=== PATIENT | female | born 1995 | race Caucasian/White ===

== ENCOUNTER 2020-08-05 10:16 | Emergency (ER) | payer BC, SELFPAY ==
[2020-08-05 10:27] VITALS: BP 126/86; PULSE 90; RESP 19; TEMP 37; O2SAT 99; BMI 26.2
--- NOTE | 2020-08-05 10:38 | HMH.EDUTC ---
[facility] [place] Disposition Clinical Impression: Viral upper respiratory illness, Encounter for laboratory testing for COVID-19 virus Disposition: Home, Self-Care Condition on Discharge: Good Instructions: Preventing the Spread of Coronavirus Discharge Instructions Additional Instructions: *Monitor Temp, Over the counter Motrin or Tylenol as directed/as needed Tylenol every 4 hours and Motrin every 6 hours (as long as your family doctor has told you that you can take it) for fever or pain. and straight to ER if unable to lower temp less than 101.0 after medication given *Warm salt water gargles may help to soothe the throat *Throat Lozenges *Warm fluids like tea with honey may help to soothe the throat *Sleep elevated *Humidifier/Vaporizer *Flonase 2 sprays in each nostril daily but be aware that it may take 2-3 days before you notice improvement *Bromfed may cause drowsiness. Know how it effects you (your child) before driving, caring for small child, or sending your child to school. Not other antihistamines/allergy medications while taking bromfed Your throat swab was sent for culture. Those results are typically sent to your primary care. Be sure to follow up in 2-3 days with your family doctor/primary care physician if no improvement so they can review those result and treat if necessary. If you don?t have a primary care doctor, I recommend you get one but in the mean time, you will have to return to a walk in clinic Follow up IMMEDIATELY for new or worsening symptoms or no Noticeable improvement over the next 48-72 hours. 911 for difficulty breathing or swallowing You was tested for today for COVID19 your test result should be back later this evening, you may call back later this evening to see if your test results are back and the result You was given a handout with instructions for Self Quarantine and Self isolation for while you wait on test results and what to do if they are positive Prescriptions: Brompheniramine/Pseudoephed/Dm [Bromfed Dm Cough Syrup] 5 - 10 ml PO Q46H #200 ml Transmission Status: Received by [id number] Fluticasone Propionate [Flonase 50mcg nasal spray 16gm] 1 spr NS DAILY #1 bottle Transmission Status: Received by [id number] Referrals: Sushant Castro MD [Primary Care Provider] - As needed Forms: Work/School Release Time of Disposition: 10:54 Medical Decision Making - Dante Inquiry Pt receiving controlled substance: No Dante was queried for this patient: No Vital Signs: 08/05/20 10:27 Temperature 98.6 F Temperature Source Oral Pulse Rate [Radial] 90 Respiratory Rate 19 Blood Pressure [Right Arm] 126/86 Blood Pressure Mean [Right Arm] 99 02 Sat by Pulse Oximetry 99 Orders (Tests/Meds): ORDERS Category Date Time Status Covid-19 Nasal PCR ([facility]) Routine Lab 08/05/20 10:30 Received Medical Decision Narrative: Denies [facility] [place] HPI - General Stated complaint: covid exposure Time Seen by Provider: 08/05/20 10:38 Mode of Arrival: Ambulatory Source of Information: Patient Limitations: No Limitations Description of Symptoms (Recalled from Triage Doc. by RN): covid exposure. HEENT Symptoms (Recalled from RN notes): No Resp Symptoms (Recalled from RN notes): No Skin Symptoms (Recalled from RN notes): No MS Symptoms (Recalled from RN notes): No Functional Status (Recalled from RN notes): wnl - History of Present Illness Provider Complaint: Patient states that she was recently exposed to someone that was positive for COVID and was tested and her initial test was negative but has since started having symptoms such as runny nose, body aches and chills States that today she come back in to get retested again since she is now having symptoms - Related Data Previous Rx's Medication Instructions Recorded Brompheniramine/Pseudoephed/Dm 5 - 10 ml PO Q46H #200 ml 08/05/20 [Bromfed Dm Cough Syrup] Fluticasone Propionate [Flonase 1 spr NS DAILY #1 bottle
[2020-08-05 11:06] VITALS: BP 126/84; PULSE 90; RESP 19; TEMP 37; O2SAT 99
[2020-08-06 17:51] LABS: Covid-19 Nasal PCR Sendout Lex Not Detected
== END 2020-08-05 11:06 | disposition home or self-care (01) ==
PROVIDERS: Emergency Provider Nurse Practitioner; PCP Internal Medicine Adolescent Medicine
DX: Z20.828 Contact with and (suspected) exposure to other viral communicable diseases (principal); J06.9 Acute upper respiratory infection, unspecified
CPT/HCPCS: 99201; U0003; U0004

== ENCOUNTER → 2021-06-30 11:45 | Outpatient (CLI) | payer BC, SELFPAY | PROVIDERS: PCP Internal Medicine Adolescent Medicine; Visit Provider Nurse Practitioner | DX: Z20.822 Contact with and (suspected) exposure to COVID-19 (principal) | CPT/HCPCS: C9803; U0003; U0005 ==

== ENCOUNTER → 2022-10-23 07:14 | Outpatient (CLI) | payer BC, SELFPAY ==
[2022-10-23 13:52] LABS: HCG,Quantitative 98433 mIU/ml (0-5.42)
== END ==
PROVIDERS: Visit Provider Student in an Organized Health Care Education/Training Program
DX: N92.6 Irregular menstruation, unspecified (principal); Z32.00 Encounter for pregnancy test, result unknown
CPT/HCPCS: 36415; 84702

== ENCOUNTER 2023-04-26 20:09 | Outpatient (CLI) | payer BC, SELFPAY ==
[2023-04-26 20:09] VITALS: BP 99/59; PULSE 105; RESP 24; TEMP 36.8; O2SAT 97; BMI 26.6
[2023-04-26 20:40] VITALS: BMI 27.2
--- NOTE | 2023-04-26 20:47 | US_ITS ---
PROCEDURE INFORMATION: Exam: US Retroperitoneal Complete, Kidneys Aorta IVC. Exam date and time: 04/26/2023 9:24 PM Age: 27 years old Clinical indication: Abdominal pain; Left lower quadrant (llq); ; Patient HX: 35w preg-- RT flank now going to lt side; Additional info: Flank pain TECHNIQUE: Imaging protocol: Real-time ultrasound of the retroperitoneum with image documentation. Complete exam. COMPARISON: US ABDOMEN LIMITED 04/26/2023 9:14 PM FINDINGS: Right kidney: No stones. Moderate pelvicaliectasis and mild proximal ureterectasis. Left kidney: No stones. Mild pelvicaliectasis and mild proximal ureterectasis. Spleen: Unremarkable. Aorta: Normal. No aneurysm. Common iliac arteries: Normal. Inferior vena cava: Normal. IMPRESSION: Moderate right and mild left hydroureteronephrosis.
--- NOTE | 2023-04-26 20:47 | US_ITS ---
PROCEDURE INFORMATION: Exam: US Abdomen; Limited Exam date and time: 04/26/2023 9:14 PM Age: 27 years old Clinical indication: Abdominal pain; Acute; ; Patient HX: 35 w preg-- rlq pain; Additional info: Rlq pain-- concern mostly for appendix TECHNIQUE: Imaging protocol: Real time ultrasound of the abdomen with image documentation. Limited exam focused on the region of clinical interest. COMPARISON: No relevant prior studies available. FINDINGS: Appendix: Nonvisualized appendix. No free fluid. Prominent vessels within the pelvis. Limited evaluation of a single intrauterine with the fetus in cephalic position. IMPRESSION: Nonvisualized appendix. No free fluid.
[2023-04-26 21:21] LABS: Microscopic, Urine URINE MICROSCOPIC (MICROSCOPIC)
[2023-04-26 21:25] LABS: Appearance,Urine CLEAR (Clear); Bilirubin,Urine Negative (Negative); Blood, Urine Negative (Negative); Color,Urine STRAW (Yellow); Glucose,Urine (UA) Negative (Negative); Ketones,Urine Negative (Negative); Leukocyte Esterase,Urine Negative (Negative); Nitrate,Urine Negative (Negative); PH,Urine 5.5 (5.0-8.5); Protein,Urine Negative (Negative); Urobilinogen,Urine 0.2 EU/dl (0.2)
[2023-04-26 21:29] LABS: Basophils % 0.4 % (0.1-2.0); Eosinophils # 0.1 K/mm3 (0.0-0.4); Eosinophils % 1.4 % (0.1-12.0); Hematocrit 30.3 % (37.0-47.0); Hemoglobin 9.7 g/dL (12.2-16.2); Lymphocytes # 2.3 K/mm3 (0.7-4.5); Lymphocytes % 22.2 % (10-50); Mean Corpuscular HGB Conc 31.9 g/dL (31.8-35.4); Mean Corpuscular Volume 81.6 fl (81-99); Mean Platelet Volume 8.3 fl (7.4-10.4); Monocytes # 0.7 K/mm3 (0.1-1.0); Platelet Count 297 K/mm3 (142-424); Red Blood Count 3.71 M/mm3 (4.20-5.40); Red Cell Distribution Width 16.1 % (11.5-17.5); White Blood Count 10.1 K/mm3 (4.8-10.8)
[2023-04-26 21:38] LABS: Bacteria,Urine Trace /lpf; Squamous Epithelial Cell,Urine Occasional #/hpf (0-5)
[2023-04-26 21:42] LABS: Barbiturates Screen,Urine Negative ng/ml (<200); Benzodiazepines Screen,Urine Negative ng/ml (<200)
[2023-04-26 21:43] LABS: Amphetamine/Metha Screen,Urine Negative ng/ml (<1000)
[2023-04-26 21:44] LABS: Cannabinoid Screen,Urine Negative ng/ml (<50); Cocaine Screen,Urine Negative ng/ml (<300)
[2023-04-26 21:45] LABS: Methadone Screen,Urine Negative ng/ml (<300)
[2023-04-26 21:46] LABS: Opiate Screen,Urine Negative ng/ml (<300); Phencyclidine Screen,Urine Negative ng/ml (<25)
== END 2023-04-26 22:35 | disposition home or self-care (01) ==
LOC: OBOUT 20:11 → OB 20:11
PROVIDERS: Visit Provider Obstetrics & Gynecology
DX: O26.893 Other specified pregnancy related conditions, third trimester (principal); Z3A.37 37 weeks gestation of pregnancy; R10.31 Right lower quadrant pain
CPT/HCPCS: 76705; 76770; 80305; 81001; 85025